=== PATIENT | male | born 1985 | race Caucasian/White ===

== ENCOUNTER 2021-07-14 19:17 | Emergency (ER) | payer SELFPAY ==
[2021-07-14] MEDS ORDERED: Sodium Chloride 0.9% 2.5 ML Syringe FLUSH PRN (19:44)
[2021-07-14] MEDS ORDERED: Sodium Chloride 0.9% 10 ML Syringe FLUSH PRN (19:44)
[2021-07-14] MEDS ORDERED: Ketorolac 30 MG/ML SDV IVPUSH ONE (19:45)
[2021-07-14] MEDS ORDERED: Sodium Chloride 0.9% 1,000 ML IV ONE ×2 (19:45→21:22)
[2021-07-14] MEDS ORDERED: Ondansetron 4 MG/2 ML SDV IVPUSH ONE ×2 (19:45→22:12)
--- NOTE | 2021-07-14 19:50 | EDM.PDOC ---
ED HPI GENERAL MEDICAL PROBLEM - General Chief Complaint: Abdominal Pain Stated Complaint: VOMITTING, THROAT SWELLING Time Seen by Provider: 07/14/21 19:45 Source of Information: Reports: Patient History Limitations: Reports: No Limitations - History of Present Illness INITIAL COMMENTS - FREE TEXT/NARRATIVE: HISTORY AND PHYSICAL: History of present illness: The patient is a 36-year-old male who presents to the emergency department with complaints of vomiting approximately 15 times today, sore throat with the sensation of throat closing. The patient states that he has had diarrhea for approximately 2 days. The patient states that he has some raw feeling in his mid abdomen. Patient denies any fever, chills, headache, change in vision, syncope or near syncope. Denies any chest pain, back pain, shortness of breath or cough. Denies any constipation or dysuria. Has not noted any blood in urine or stool. Patient has been eating and drinking appropriately. The patient is not Covid vaccinated. Review of systems: As per history of present illness and below otherwise all systems reviewed and negative. Past medical history: As per history of present illness and as reviewed below otherwise noncontributory. Surgical history: As per history of present illness and as reviewed below otherwise noncontributory. Social history: See social history for further information Family history: As per history of present illness and as reviewed below otherwise noncontributory. Physical exam: General: Well developed and well nourished. Alert and orientated x 3. Nontoxic in appearance and in no acute distress. Vital signs are stable and have been reviewed by me. Nursing notes were reviewed. HEENT: Atraumatic, normocephalic, pupils equal and reactive bilaterally, ne gative for conjunctival pallor or scleral icterus, mucous membranes moist, TMs normal bilaterally, throat clear, neck supple, nontender, trachea midline. No drooling or trismus noted. No meningeal signs. No hot potato voice noted. Lungs: Clear to auscultation bilaterally. No wheezes, rales, or rhonchi. Chest nontender. Normal work of breathing, no accessory muscles used. Heart: S1S2, regular rate and rhythm without overt murmur, gallops, or rubs. No JVD. No peripheral edema Abdomen: Soft, nondistended, nontender. Normoactive bowel sounds. Negative for masses or costovertebral tenderness. Skin: Intact, warm, dry. No lesions or rashes noted. Hematologic: No petechiae or purpra. Mucosa appropriate color and normal nail bed color and refill. Extremities: Atraumatic, moves all extremities per self without difficulty or deficits, negative for cords or calf pain. Neurovascular unremarkable. Neuro: Awake, alert, oriented. Cranial nerves II through XII unremarkable. Cerebellum unremarkable. Motor and sensory unremarkable throughout. Exam nonfocal. Psychiatric: Mood and affect are appropriate. Normal thought process. Answering questions appropriately. Notes: *This patient was seen and evaluated during the 2019 SARS-CoV-2 novel coronavirus pandemic period. Community viral transmission is ongoing at time of this encounter and the emergency department is operating under pandemic response procedures. As stated above, the patient is a 36-year-old male who presents to the emergency room with complaints of vomiting approximately 15 times today and afterwards his throat is now very irritated to where it feels like it is closing. The patient is able to swallow and has no stridor. The patient did state that he had diarrhea for the last 2 days. The patient denies any fever. I will do abdominal work-up avoiding a CT unless the lab work states it. This is most likely a viral illness. We also did a Covid 19 swab. The patient's CBC is remarkable for a hemoglobin of 17.7. The patient's chemistry is significant for a chloride of 97, creatinine 1.4, glucose 147, calcium 8.3. His AST is 78 and ALT is 88. The patient is still having abdominal distress but his nausea is much better. I will go ahead and order an abdominal/pelvis CT. I will also order viscous lidocaine for the patient's throat as this is causing him discomfort. The patient is agreeable with this plan. The patient's urine is negative for infection. Abdomen/Pelvis CT IMPRESSION: 1. Hepatomegaly. 2. No acute abnormality in abdomen or pelvis otherwise. 3. 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 The patient is feeling somewhat better however he is now starting to have heartburn. An EKG which Dr. Killian read as normal. I will treat the patient's heartburn with Mylanta, pantoprazole IV push, and another dose of Zofran. After talking with patient he states that he is a heavy drinker but has not drank today due to using vomiting. He states that he normally requires Tums but not on a daily basis. I think this is mostly irritation from the vomiting and we'll treated as such the patient is agreeable with this plan. I have talked with the patient about today's findings, in addition to providing specific details for plan of care. Reassessment at the time of disposition demonstrates that the patient is in no acute distress. The patient is stable for discharge, counseling was provided and we discussed in great detail signs and symptoms that would prompt them to return to the Emergency Department. Medication, follow up and supportive care measures were reviewed and discussed. Voices understanding and is agreeable to plan of care. Denies any further questions or concerns at this time. Diagnostics: CBC, CMP, magnesium, UA, Covid 19 Therapeutics: V fluids, Zofran, Toradol, viscous lidocaine Prescription: Pantoprazole 20 mg p.o. twice a day to take p.o. before meals for 10 days, Zofran 4 mg ODT 1 every 6 hours #10 Impression: Vomiting, diarrhea, heartburn Plan: 1. You were evaluated today on an emergent basis. Your complaints of nausea, vomiting, and diarrhea was evaluated with blood work. Your blood work showed a slightly elevated creatinine of 1.4, and as we talked about this is just a slight elevation nothing to worry about. Your abdomen/pelvis CT did not show any acute abnormality however you do have an enlarged liver along with elevated liver enzymes that you need to follow-up with your primary care about. I do think part of the irritation burning is from drinking daily and then going through this vomiting process. We treated you with viscous lidocaine, Mylanta, and Zofran. I also gave you IV pantoprazole which will help with the heartburn. I'm prescribing you oral pantoprazole twice a day for 10 days Zofran 4 mg ODT 1 every 6 hours for nausea, which were sent to [facility] pharmacy.. Then take Pepcid 20 mg once or twice a day to control your heartburn. You might need to supplement with your Tums as needed. Your urine was negative for an infection. 2. You can alternate Tylenol and ibuprofen as needed for pain and fever management. 3. We encourage you to follow up with your primary care provider and/or recommended specialist in the next few days for re-evaluation and further care/management. 4. If your symptoms should worsen, new symptoms develop or any of the signs and symptoms we discussed should arise please return to the emergency room or call 911 (if needed). Definitive disposition and diagnosis as appropriate pending reevaluation and review of above. Abdominal Pain Score (Numeric/FACES): 4 - Related Data Allergies Allergy/AdvReac Type Severity Reaction Status Date / Time No Known Allergies Allergy Verified 07/14/21 19:35 Home Meds: Home Meds Ondansetron [Zofran ODT] 4 mg PO Q6H PRN #10 tab.dis 07/14/21 [Rx] Pantoprazole 20 mg PO BIDAC 20 Days #40 tab.dr 07/14/21 [Rx] Social & Family History - Tobacco Use Second Hand Smoke Exposure: No - Caffeine Use Caffeine Use: Reports: None - Recreational Drug Use Recreational Drug Use: No ED ROS GENERAL - Review of Systems Review Of Systems: Comprehensive ROS is negative, except as noted in HPI. ED EXAM, GI/ABD - Physical Exam Exam: See Below (See dictation) Course - Vital Signs Last Recorded V/S: Last Vital Signs Temp 96.8 F L 07/14/21 19:31 Pulse 85 07/14/21 21:17 Resp 16 07/14/21 21:17 BP 151/112 H 07/14/21 21:17 Pulse Ox 97 07/14/21 21:17 - Orders/Labs/Meds Orders: Active Orders 24 hr Category Date Time Status Sodium Chloride 0.9% [Saline Flush] Med 07/14/21 19:44 Active 10 ml FLUSH ASDIRECTED PRN Sodium Chloride 0.9% [Saline Flush] Med 07/14/21 19:44 Active 2.5 ml FLUSH ASDIRECTED PRN Saline Lock Insert [OM.PC] Stat Oth 07/14/21 19:44 Ordered Medication Orders Sodium Chloride (Sodium Chloride 0.9% 10 Ml Syringe) 10 ml FLUSH ASDIRECTED PRN PRN Reason: Keep Vein Open Last Admin: 07/14/21 19:57 Dose: 10 ml Documented by: MAGALY Sodium Chloride (Sodium Chloride 0.9% 2.5 Ml Syringe) 2.5 ml FLUSH ASDIRECTED PRN PRN Reason: Keep Vein Open Last Admin: 07/14/21 19:57 Dose: 2.5 ml Documented by: SALAJER Labs: Laboratory Tests 07/14/21 07/14/21 07/14/21 Range/Units 19:39 19:40 19:40 WBC 4.97 (4.0-11.0) K/uL RBC 5.42 (4.50-5.90) M/uL Hgb 17.7 H (13.0-17.0) g/dL Hct 47.9 (38.0-50.0) % MCV 88.4 (80.0-98.0) fL MCH 32.7 H (27.0-32.0) pg MCHC 37.0 (31.0-37.0) g/dL RDW Std Deviation 40.0 (28.0-62.0) fl RDW Coeff of Bill 13 (11.0-15.0) % Plt Count 323 (150-400) K/uL MPV 10.20 (7.40-12.00) fL Neut % (Auto) 50.3 (48.0-80.0) % Lymph % (Auto) 34.8 (16.0-40.0) % [place] % (Auto) 14.7 (0.0-15.0) % Eos % (Auto) 0.0 (0.0-7.0) % Baso % (Auto) 0.2 (0.0-1.5) % Neut # (Auto) 2.5 (1.4-5.7) K/uL Lymph # (Auto) 1.7 (0.6-2.4) K/uL [place] # (Auto) 0.7 (0.0-0.8) K/uL Eos # (Auto) 0.0 (0.0-0.7) K/uL Baso # (Auto) 0.0 (0.0-0.1) K/uL Nucleated RBC % 0.0 /100WBC Nucleated RBCs # 0 K/uL Sodium 138 (136-148) mmol/L Potassium 3.5 (3.5-5.1) mmol/L Chloride 97 L (98-107) mmol/L Carbon Dioxide 29.7 (21.0-32.0) mmol/L BUN 16 (7.0-18.0) mg/dL Creatinine 1.4 H (0.8-1.3) mg/dL Est Cr Clr Drug Dosing 73.65 mL/min Estimated GFR (MDRD) 57.7 ml/min Glucose 147 H (74-106) mg/dL Calcium 8.3 L (8.5-10.1) mg/dL Magnesium 2.2 (1.8-2.4) mg/dL Total Bilirubin 0.6 (0.2-1.0) mg/dL AST 78 H (15-37) IU/L ALT 88 H (14-63) IU/L Alkaline Phosphatase 73 (46-116) U/L Troponin I (0.000-0.056) ng/mL Total Protein 8.0 (6.4-8.2) g/dL Albumin 4.0 (3.4-5.0) g/dL Globulin 4.0 (2.6-4.0) g/dL Albumin/Globulin Ratio 1.0 (0.9-1.6) Urine Color Urine Appearance Urine pH (5.0-8.0) Ur Specific [place] (1.001-1.035) Urine Protein (NEGATIVE) mg/dL Urine Glucose (UA) (NEGATIVE) mg/dL Urine Ketones (NEGATIVE) mg/dL Urine Occult Blood (NEGATIVE) Urine Nitrite (NEGATIVE) Urine Bilirubin (NEGATIVE) Urine Urobilinogen (<2.0) EU/dL Ur Leukocyte Esterase (NEGATIVE) Urine RBC (0-2/HPF) Urine WBC (0-5/HPF) Ur Epithelial Cells (NONE-FEW) Urine Bacteria (NEGATIVE) Urine Mucus (NONE-MOD) Influenza Type A RNA NEGATIVE (NEGATIVE) Influenza Type B RNA NEGATIVE (NEGATIVE) SARS-CoV-2 RNA (JOSE) NEGATIVE (NEGATIVE) 07/14/21 07/14/21 Range/Units 19:40 20:20 WBC (4.0-11.0) K/uL RBC (4.50-5.90) M/uL Hgb (13.0-17.0) g/dL Hct (38.0-50.0) % MCV (80.0-98.0) fL MCH (27.0-32.0) pg MCHC (31.0-37.0) g/dL RDW Std Deviation (28.0-62.0) fl RDW Coeff of Bill (11.0-15.0) % Plt Count (150-400) K/uL MPV (7.40-12.00) fL Neut % (Auto) (48.0-80.0) % Lymph % (Auto) (16.0-40.0) % [place] % (Auto) (0.0-15.0) % Eos % (Auto) (0.0-7.0) % Baso % (Auto) (0.0-1.5) % Neut # (Auto) (1.4-5.7) K/uL Lymph # (Auto) (0.6-2.4) K/uL [place] # (Auto) (0.0-0.8) K/uL Eos # (Auto) (0.0-0.7) K/uL Baso # (Auto) (0.0-0.1) K/uL Nucleated RBC % /100WBC Nucleated RBCs # K/uL Sodium (136-148) mmol/L Potassium (3.5-5.1) mmol/L Chloride (98-107) mmol/L Carbon Dioxide (21.0-32.0) mmol/L BUN (7.0-18.0) mg/dL Creatinine (0.8-1.3) mg/dL Est Cr Clr Drug Dosing mL/min Estimated GFR (MDRD) ml/min Glucose (74-106) mg/dL Calcium (8.5-10.1) mg/dL Magnesium (1.8-2.4) mg/dL Total Bilirubin (0.2-1.0) mg/dL AST (15-37) IU/L ALT (14-63) IU/L Alkaline Phosphatase (46-116) U/L Troponin I < 0.050 (0.000-0.056) ng/mL Total Protein (6.4-8.2) g/dL Albumin (3.4-5.0) g/dL Globulin (2.6-4.0) g/dL Albumin/Globulin Ratio (0.9-1.6) Urine Color DARK YELLOW Urine Appearance CLEAR Urine pH 8.5 H (5.0-8.0) Ur Specific [place] 1.010 (1.001-1.035) Urine Protein TRACE H (NEGATIVE) mg/dL Urine Glucose (UA) NEGATIVE (NEGATIVE) mg/dL Urine Ketones NEGATIVE (NEGATIVE) mg/dL Urine Occult Blood NEGATIVE (NEGATIVE) Urine Nitrite NEGATIVE (NEGATIVE) Urine Bilirubin SMALL H (NEGATIVE) Urine Urobilinogen 1.0 (<2.0) EU/dL Ur Leukocyte Esterase NEGATIVE (NEGATIVE) Urine RBC 0-1 (0-2/HPF) Urine WBC 0-1 (0-5/HPF) Ur Epithelial Cells RARE (NONE-FEW) Urine Bacteria RARE (NEGATIVE) Urine Mucus LIGHT (NONE-MOD) Influenza Type A RNA (NEGATIVE) Influenza Type B RNA (NEGATIVE) SARS-CoV-2 RNA (JOSE) (NEGATIVE) Meds: Medications Generic Name Dose Route Start Last Admin Trade Name Freq PRN Reason Stop Dose Admin Sodium Chloride 10 ml 07/14/21 19:44 07/14/21 19:57 Sodium Chloride 0.9% 10 Ml Syringe FLUSH 10 ml ASDIRECTED PRN Administration Keep Vein Open Sodium Chloride 2.5 ml 07/14/21 19:44 07/14/21 19:57 Sodium Chloride 0.9% 2.5 Ml Syringe FLUSH 2.5 ml ASDIRECTED PRN Administration Keep Vein Open Discontinued Medications Generic Name Dose Route Start Last Admin Trade Name Freq PRN Reason Stop Dose Admin Sodium Chloride 1,000 mls @ 999 mls/hr 07/14/21 19:45 07/14/21 19:58 Normal Saline IV 07/14/21 20:45 999 mls/hr .BOLUS ONE Administration Sodium Chloride 1,000 mls @ 999 mls/hr 07/14/21 21:22 07/14/21 22:32 Normal Saline IV 07/14/21 22:22 999 mls/hr .BOLUS ONE Administration Ketorolac Tromethamine 30 mg 07/14/21 19:45 07/14/21 19:58 Ketorolac 30 Mg/Ml Sdv IVPUSH 07/14/21 19:46 30 mg ONETIME ONE Administration Lidocaine HCl 15 ml 07/14/21 20:39 07/14/21 21:07 Lidocaine 2% Viscous Solution 15 Ml Cup PO 07/14/21 20:40 15 ml ONETIME ONE Administration Ondansetron HCl 4 mg 07/14/21 19:45 07/14/21 19:58 Ondansetron 4 Mg/2 Ml Sdv IVPUSH 07/14/21 19:46 4 mg ONETIME ONE Administration Ondansetron HCl 4 mg 07/14/21 22:12 07/14/21 22:31 Ondansetron 4 Mg/2 Ml Sdv IVPUSH 07/14/21 22:13 4 mg ONETIME ONE Administration Pantoprazole Sodium 40 mg 07/14/21 22:13 07/14/21 22:32 Pantoprazole 40 Mg/10 Ml Syringe IVPUSH 07/14/21 22:14 40 mg NOW ONE Administration Departure - Departure Time of Disposition: 23:04 Disposition: Home, Self-Care 01 Condition: Good Clinical Impression: Abdominal pain Qualifiers: Abdominal location: generalized Qualified Code(s): R10.84 - Generalized abdominal pain Vomiting Qualifiers: Vomiting type: unspecified Vomiting Intractability: unspecified Nausea presence: with nausea Qualified Code(s): R11.2 - Nausea with vomiting, unspecified Gastritis Qualifiers: Gastritis type: unspecified gastritis Chronicity: acute Gastritis bleeding: without bleeding Qualified Code(s): K29.00 - Acute gastritis without bleeding - Discharge Information Prescriptions: Pantoprazole 20 mg PO BIDAC 20 Days #40 tab.dr Ondansetron [Zofran ODT] 4 mg PO Q6H PRN #10 tab.dis PRN Reason: Nausea Instructions: Gastritis, Adult, [id number], Nausea and Vomiting, Adult Referrals: PCP,None [Primary Care Provider] - Forms: ED Department Discharge Additional Instructions: The following information is given to patients seen in the emergency department who are being discharged to home. This information is to outline your options for follow-up care. We provide all patients seen in our emergency department with a follow-up referral. The need for follow-up, as well as the timing and circumstances, are variable depending upon the specifics of your emergency department visit. If you don't have a primary care physician on staff, we will provide you with a referral. We always advise you to contact your personal physician following an emergency department visit to inform them of the circumstance of the visit and for follow-up with them and/or the need for any referrals to a consulting specialist. The emergency department will also refer you to a specialist when appropriate. This referral assures that you have the opportunity for follow-up care with a specialist. All of these measure are taken in an effort to provide you with opti mal care, which includes your follow-up. Under all circumstances we always encourage you to contact your private physician who remains a resource for coordinating your care. When calling for follow-up care, please make the office aware that this follow-up is from your recent emergency room visit. If for any reason you are refused follow-up, please contact the [facility] Emergency Department at and asked to speak to the emergency department charge nurse. [facility] - Primary Care [address] [place] [address] [facility] [address] [place] [address] Plan: 1. You were evaluated today on an emergent basis. Your complaints of nausea, vomiting, and diarrhea was evaluated with blood work. Your blood work showed a slightly elevated creatinine of 1.4, and as we talked about this is just a slight elevation nothing to worry about. Your abdomen/pelvis CT did not show any acute abnormality however you do have an enlarged liver along with elevated liver enzymes that you need to follow-up with your primary care about. I do think part of the irritation burning is from drinking daily and then going through this vomiting process. We treated you with viscous lidocaine, Mylanta, and Zofran. I also gave you IV pantoprazole which will help with the heartburn. I'm prescribing you oral pantoprazole twice a day for 10 days Zofran 4 mg ODT 1 every 6 hours for nausea, [facility] Then take Pepcid 20 mg once or twice a day to control your heartburn. You might need to supplement with your Tums as needed. Your urine was negative for an infection. 2. You can alternate Tylenol and ibuprofen as needed for pain and fever management. 3. We encourage you to follow up with your primary care provider and/or recommended specialist in the next few days for re-evaluation and further care/management. 4. If your symptoms should worsen, new symptoms develop or any of the signs and symptoms we discussed should arise please return to the emergency room or call 911 (if needed). Sepsis Event Note (ED) - Evaluation Sepsis Screening Result: No Definite Risk - Focused Exam Vital Signs: Vital Signs Temp Pulse Resp BP Pulse Ox 07/14/21 21:17 85 16 151/112 H 97 07/14/21 19:31 96.8 F L 108 H 20 160/117 H 97 - My Orders Last 24 Hours: My Active Orders 07/14/21 19:44 Sodium Chloride 0.9% [Saline Flush] 10 ml FLUSH ASDIRECTED PRN Sodium Chloride 0.9% [Saline Flush] 2.5 ml FLUSH ASDIRECTED PRN Saline Lock Insert [OM.PC] Stat - Assessment/Plan Last 24 Hours: My Active Orders 07/14/21 19:44 Sodium Chloride 0.9% [Saline Flush] 10 ml FLUSH ASDIRECTED PRN Sodium Chloride 0.9% [Saline Flush] 2.5 ml FLUSH ASDIRECTED PRN Saline Lock Insert [OM.PC] Stat
[2021-07-14 20:05] LABS: CARBON DIOXIDE,CO2 29.7 mmol/L (21.0-32.0); POTASSIUM,K 3.5 mmol/L (3.5-5.1)
[2021-07-14 20:21] LABS: CORONAVIRUS COVID-19 NAA NEGATIVE (NEGATIVE); INFLUENZA A NAA NEGATIVE (NEGATIVE); INFLUENZA B NAA NEGATIVE (NEGATIVE)
[2021-07-14] MEDS ORDERED: Lidocaine 2% Viscous Solution 15 ML Cup PO ONE (20:39)
--- NOTE | 2021-07-14 21:48 | CT ---
HISTORY: Abdominal pain. TECHNIQUE: CT abdomen and pelvis without contrast. COMPARISON: None. FINDINGS: Abdomen: Liver is enlarged. Pancreas, spleen, and adrenal glands are unremarkable. No urinary tract calculi or hydronephrosis. No dilated bowel. Appendix is unremarkable. No free fluid. No lymphadenopathy. Abdominal aorta is not dilated. Pelvis: No lymphadenopathy. 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 No ankylosis. No significant arthrosis at the right sacroiliac joint. No ankylosis in the spine. Lower chest: Unremarkable. IMPRESSION: 1. Hepatomegaly. 2. No acute abnormality in abdomen or pelvis otherwise. 3. 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 Please note that all CT scans at this facility use dose modulation, iterative reconstruction, and/or weight-based dosing when appropriate to reduce radiation dose to as low as reasonably achievable. Dictated by Miah Burks MD @ 07/14/2021 9:46:46 PM (Electronically Signed)
[2021-07-14] MEDS ORDERED: Aluminum Hydroxide/Magnesium Hydroxide/Simethicone XS Susp 30 ML Cup PO ONE (22:12)
[2021-07-14] MEDS ORDERED: Pantoprazole 40 MG/10 ML Syringe IVPUSH ONE (22:13)
--- NOTE | 2021-07-14 22:35 | PCM.EKG ---
#1 Interpretation EKG Interpretation Comments: EKG done 07/14/2021 at 10:16 PM shows a sinus rhythm heart rate 93 NE 146 QT duration 467 [place] [address] and T no prior for comparison impression normal
== END 2021-07-14 23:20 | disposition home or self-care (01) ==
LOC: MW.ED 19:17
DX: K29.00 Acute gastritis without bleeding (principal); R11.2 Nausea with vomiting, unspecified; R19.7 Diarrhea, unspecified; R12 Heartburn; Z20.822 Contact with and (suspected) exposure to COVID-19
CPT/HCPCS: 0240U; 36415; 74176; 80053; 81001; 83735; 84484; 85025; 93005; 96374; 96375; 96376; 99284; A9270; C9113; J1885; J2405; J7030